=== PATIENT | male | born 1980 | race Two or more races ===

== ENCOUNTER → 2019-10-31 | Outpatient (CLI) | payer SELFPAY ==
[2019-09-05 15:00] VITALS: BP 122/79
[~2019-10-31] MED LIST: ACET325T9 PO; LACT1CAP19 PO; LEVO500T8 PO
--- NOTE | 2019-10-31 13:20 | RAD ---
CHEST PA LATERAL History: Cough Comparison: 09/02/2019 two-view chest x-ray exam. Findings: Frontal and lateral views of the chest were obtained. The cardiomediastinal silhouette is normal. Pulmonary vasculature is normal. The lungs are nearly completely clear. There may be very minimal subtle residual opacity involving the right upper lung at the site of previous base seen consolidation. No pleural effusion or pneumothorax is seen. There is no acute bone abnormality. IMPRESSION: Infiltrate is not definitely delineated. There may be subtle residual opacity at the right upper lung at the previously seen consolidation. No new infiltrate. Electronically signed by: Raghu Briceno MD (10/31/2019 1:17 PM) [id number]
== END | disposition home or self-care (01) ==
LOC: RAD 12:27
PROVIDERS: ATTEND Internal Medicine Pulmonary Disease
DX: R05 Cough (principal)
CPT/HCPCS: 71046